=== PATIENT | female | born 1980 | race Caucasian/White ===

== ENCOUNTER 2016-12-17 15:47 | Observation (INO) | payer OTHER ==
[~2016-12-17] VITALS: Ht 172.7 cm; Wt 160.1 kg
[~2016-12-17 15:47] MED LIST: ALBU8HFA4 IH; LEVE500T53 PO; LEVO175T9 PO; LISI-662 PO; LITH600 PO; MONT10TA21 PO; OMEP20 PO; PHENY100 PO; SIMV-260 PO; TRAZ150 PO; VENL-68 PO; ZIPR80CA2 PO
[2016-12-17 17:09] VITALS: BP 96/55
[2016-12-17 17:10] LABS: BASOPHILS % (AUTO) 0.3 % (0.0-2.0); EOSINOPHILS % (AUTO) 0.9 % (1.0-6.0); HEMATOCRIT 37.2 % (36-46); HEMOGLOBIN 12.6 g/dL (12.0-16.0); LYMPHOCYTES # (AUTO) 2.3 K/uL (1.0-4.8); LYMPHOCYTES % (AUTO) 25.2 % (22.0-44.0); MEAN CORPUSCULAR HEMOGLOBIN 31.9 pg (26.0-34.0); MEAN CORPUSCULAR HGB CONC 33.9 G/dL (31.0-37.0); MEAN CORPUSCULAR VOLUME 94 fL (80-100); MONOCYTES # (AUTO) 0.5 K/uL (0.1-1.0); MONOCYTES % (AUTO) 5.4 % (2.0-9.0); NEUTROPHILS # (AUTO) 6.1 K/uL (1.8-7.7); NEUTROPHILS % (AUTO) 68.2 % (40.0-70.0); PLATELET COUNT (AUTO) 156 K/uL (150-450); RED BLOOD CELL COUNT(AUTO) 3.95 MIL/uL (4.00-5.20); RED CELL DISTRIBUTION WIDTH 13.6 % (11.5-14.5)
[2016-12-17 17:20] LABS: ANION GAP 10 mmol/L (8-16); CARBON DIOXIDE 23 mmol/L (22-29); CHLORIDE 104 mmol/L (98-107); CREATININE 0.97 mg/dL (0.60-1.30); GLOMERULAR FILTR. RATE CALC > 60 mL/min (>60); POTASSIUM 3.9 mmol/L (3.5-5.1); SODIUM SERUM 137 mmol/L (136-145); UREA NITROGEN, BLOOD 8 mg/dL (7-18)
[2016-12-17 17:26] LABS: ALANINE AMINOTRANSFERASE 11 U/L (12-78); ALBUMIN 2.3 g/dL (3.4-5.0); ASPARTATE AMINOTRANSFERASE 11 U/L (15-37); BILIRUBIN,TOTAL 0.1 mg/dL (0.1-1.0); TOTAL PROTEIN, SERUM 6.3 g/dL (6.4-8.2); URIC ACID 5.7 mg/dL (2.6-7.2)
[2016-12-17 18:22] LABS: HEMOGLOBIN A1C 5.4 % (4.5-6.2)
== END 2016-12-17 18:15 | disposition home or self-care (01) ==
LOC: 4S 16:00
PROVIDERS: ADMIT Obstetrics & Gynecology; ATTEND Obstetrics & Gynecology
DX: O13.3 Gestational [pregnancy-induced] hypertension without significant proteinuria, third trimester (principal); O26.13 Low weight gain in pregnancy, third trimester; O26.893 Other specified pregnancy related conditions, third trimester; R51 Headache; G89.29 Other chronic pain; O99.343 Other mental disorders complicating pregnancy, third trimester; F41.9 Anxiety disorder, unspecified; O99.333 Smoking (tobacco) complicating pregnancy, third trimester
CPT/HCPCS: 36415; 59025; 80053; 81050; 83036; 84156; 84550; 85025; G0378

== ENCOUNTER 2017-01-28 12:40 | Observation (INO) | payer OTHER | END 2017-01-28 15:25 | disposition home or self-care (01) | LOC: 4S 12:40 | PROVIDERS: ADMIT Obstetrics & Gynecology; ATTEND Obstetrics & Gynecology | DX: O62.9 Abnormality of forces of labor, unspecified (principal); O09.523 Supervision of elderly multigravida, third trimester; O99.213 Obesity complicating pregnancy, third trimester; O99.513 Diseases of the respiratory system complicating pregnancy, third trimester; J44.9 Chronic obstructive pulmonary disease, unspecified; Z3A.37 37 weeks gestation of pregnancy | CPT/HCPCS: 59025; 80307; G0378 ==

== ENCOUNTER 2017-01-30 12:05 | Observation (INO) | payer OTHER ==
[~2017-01-30] VITALS: Ht 172.7 cm; Wt 168.3 kg
[~2017-01-30 12:05] MED LIST changes: -SIMV-260 PO; +SIMV20 PO
[2017-01-30] MEDS ORDERED: PREN1TAB80 PO (13:12)
[2017-01-30] MEDS ORDERED: LORA10TA7 PO (13:12)
[2017-01-30] MEDS ORDERED: FOLI1 PO (13:12)
[2017-01-30] MEDS ORDERED: ACET-2247 PO (13:12)
[2017-01-30] MEDS ORDERED: DEXT15LI4 PO (13:12)
[2017-01-30] MEDS ORDERED: ZIPR60CA2 PO (13:17)
[2017-01-30 13:22] VITALS: BP 135/65
[2017-01-30] MEDS ORDERED: RINGERS SOLUTION,LACTATED 1,000 ML IV SCH (14:30)
[2017-01-30] MEDS ORDERED: RINGERS SOLUTION,LACTATED 1,000 ML IV ONE ×2 (14:30→14:31)
[2017-01-30 20:42] LABS: APPEARANCE,URINE CLEAR (CLEAR); GLUCOSE, URINE (UA) NEGATIVE (NEGATIVE); KETONES,URINE NEGATIVE (NEGATIVE); LEUKOCYTE ESTERASE ,URINE NEGATIVE (NEGATIVE); OCCULT BLOOD,URINE NEGATIVE (NEGATIVE); PROTEIN,URINE TRACE (NEGATIVE)
[2017-01-30 20:59] LABS: ADD UA MICROSCOPIC NO
[2017-01-31] MEDS ORDERED: CALCIUM CARBONATE 500 MG CHEWABLE TABLET CHEW SCH
== END 2017-01-31 09:30 | disposition home or self-care (01) ==
LOC: 4S 12:05
PROVIDERS: ADMIT Obstetrics & Gynecology; ATTEND Obstetrics & Gynecology
DX: O99.213 Obesity complicating pregnancy, third trimester (principal); O99.343 Other mental disorders complicating pregnancy, third trimester; F20.9 Schizophrenia, unspecified; O99.283 Endocrine, nutritional and metabolic diseases complicating pregnancy, third trimester; E03.9 Hypothyroidism, unspecified; E16.2 Hypoglycemia, unspecified; O99.513 Diseases of the respiratory system complicating pregnancy, third trimester; J44.9 Chronic obstructive pulmonary disease, unspecified; O26.893 Other specified pregnancy related conditions, third trimester; G40.89 Other seizures; O09.523 Supervision of elderly multigravida, third trimester; Z3A.37 37 weeks gestation of pregnancy
CPT/HCPCS: 59025 ×2; 76805 ×2; 80307 ×8; 81003; 96360; 96361; G0378 ×2; J7120 ×2

== ENCOUNTER 2017-02-03 11:40 | Inpatient (IN) | payer OTHER ==
[~2017-02-03] VITALS: Ht 172.7 cm; Wt 169.6 kg
[~2017-02-03 11:40] MED LIST changes: +ACET-2247 PO; +DEXT15LI4 PO; +FOLI1 PO; -LEVE500T53 PO; -LEVO175T9 PO; -LISI-662 PO; -LITH600 PO; +LORA10TA7 PO; -PHENY100 PO; +PREN1TAB80 PO; -SIMV20 PO; -TRAZ150 PO; -VENL-68 PO; -ZIPR80CA2 PO
[2017-02-03] MEDS ORDERED: DEXAMETHASONE SOD PHOS 4 MG/ML VIAL IVP ONE (12:00)
[2017-02-03] MEDS ORDERED: EPHEDrine SULFATE 50 MG/ML VIAL IM ONE (12:00)
[2017-02-03] MEDS ORDERED: LIDOCAINE HCL/PF 2% 5 ML VIAL INJ ONE (12:00)
[2017-02-03] MEDS ORDERED: ONDANSETRON HCL 4 MG/2 ML VIAL IVP ONE (12:00)
[2017-02-03] MEDS ORDERED: PHENYLEPHRINE HCL 10 MG/ML VIAL IVP ONE (12:00)
[2017-02-03] MEDS ORDERED: RINGERS SOLUTION,LACTATED 1,000 ML IV ONE (13:47)
[2017-02-03] MEDS ORDERED: CITRIC ACID/SODIUM CITRATE 30 ML SOLUTION UDCUP PO ONE (14:00)
[2017-02-03] MEDS ORDERED: METOCLOPRAMIDE HCL 5 MG/ML 2 ML VIAL IVP ONE (14:00)
[2017-02-03 14:49] LABS: HEMATOCRIT 38.4 % (36-46); HEMOGLOBIN 12.9 g/dL (12.0-16.0); MEAN CORPUSCULAR HEMOGLOBIN 31.8 pg (26.0-34.0); MEAN CORPUSCULAR HGB CONC 33.6 G/dL (31.0-37.0); MEAN CORPUSCULAR VOLUME 95 fL (80-100); RED BLOOD CELL COUNT(AUTO) 4.05 MIL/uL (4.00-5.20); RED CELL DISTRIBUTION WIDTH 13.2 % (11.5-14.5); WHITE BLOOD COUNT (AUTO) 7.8 K/uL (4.5-11.0)
[2017-02-03 14:50] LABS: BASOPHILS % (AUTO) 0.2 % (0.0-2.0); EOSINOPHILS % (AUTO) 0.8 % (1.0-6.0); LYMPHOCYTES % (AUTO) 26.1 % (22.0-44.0); MONOCYTES # (AUTO) 0.4 K/uL (0.1-1.0); MONOCYTES % (AUTO) 5.4 % (2.0-9.0); NEUTROPHILS # (AUTO) 5.3 K/uL (1.8-7.7); NEUTROPHILS % (AUTO) 67.5 % (40.0-70.0)
[2017-02-03 14:59] VITALS: BP 96/51
[2017-02-03] MEDS ORDERED: INFLUENZA VIRUS VACCINE QVS 2016-17 (3YR+)/PF 60 MCG/0.5 ML SYRINGE IM ONE (15:15)
[2017-02-03] MEDS ORDERED: CeFAZolin 2 GM/DEXTROSE 50 ML IV ONE (16:48)
[2017-02-03] MEDS ORDERED: MORPHINE SULFATE/PF 0.5 MG/ML 10 ML AMP ONE (16:49)
[2017-02-03] MEDS ORDERED: FentaNYL CITRATE-PF 100 MCG/2 ML VIAL ONE (16:49)
[2017-02-03] MEDS ORDERED: ONDANSETRON HCL 4 MG/2 ML VIAL IVP PRN ×2 (18:30)
[2017-02-03] MEDS ORDERED: FentaNYL CITRATE-PF 100 MCG/2 ML VIAL IVP PRN ×4 (18:30)
[2017-02-03] MEDS ORDERED: DiphenhydrAMINE HCL 50 MG/ML VIAL IVP PRN ×2 (18:30)
[2017-02-03] MEDS ORDERED: DEXAMETHASONE SOD PHOS 4 MG/ML VIAL IVP PRN (18:30)
[2017-02-03] MEDS ORDERED: NALOXONE HCL 0.4 MG/ML VIAL IVP PRN (18:30)
[2017-02-03] MEDS ORDERED: KETOROLAC TROMETHAMINE 30 MG/ML VIAL IVP ONE (18:30)
[2017-02-03] MEDS ORDERED: KETOROLAC TROMETHAMINE 30 MG/ML VIAL IVP PRN (18:30)
[2017-02-03] MEDS ORDERED: ACETAMINOPHEN 1000 MG/ISO-OSM 100 ML IV ONE ×2 (18:30→19:25)
[2017-02-03] MEDS ORDERED: MEPERIDINE-PF 25 MG/ML SYRINGE IVP PRN (18:30)
[2017-02-03] MEDS ORDERED: NALBUPHINE HCL 10 MG/ML VIAL IVP PRN ×3 (18:30)
[2017-02-03] MEDS ORDERED: ACETAMINOPHEN 1000 MG/ISO-OSM 100 ML IV PRN (18:30)
[2017-02-03] MEDS ORDERED: KETOROLAC TROMETHAMINE 30 MG/ML VIAL ONE (19:50)
[2017-02-03] MEDS ORDERED: OXYGEN THERAPY IH SCH ×4 (20:00)
[2017-02-03] MEDS ORDERED: OXYTOCIN 20 UNITS in RINGERS SOLUTION,LACTATED 1,000 ML IV SCH (21:05)
[2017-02-03] MEDS ORDERED: OxyCODONE HCL/ACETAMINOPHEN 5-325 MG TABLET PO PRN (21:15)
[2017-02-04] MEDS: DEXTROSE 5%-0.45% SODIUM CHL 1,000 ML IV SCH ×2 (05:44→14:08)
[2017-02-04 06:52] LABS: BASOPHILS % (AUTO) 0.1 % (0.0-2.0); EOSINOPHILS % (AUTO) 0 % (1.0-6.0); HEMATOCRIT 33.7 % (36-46); HEMOGLOBIN 11.3 g/dL (12.0-16.0); LYMPHOCYTES # (AUTO) 1.2 K/uL (1.0-4.8); LYMPHOCYTES % (AUTO) 9.7 % (22.0-44.0); MEAN CORPUSCULAR HGB CONC 33.5 G/dL (31.0-37.0); MEAN CORPUSCULAR VOLUME 95 fL (80-100); MONOCYTES # (AUTO) 0.3 K/uL (0.1-1.0); MONOCYTES % (AUTO) 2.3 % (2.0-9.0); NEUTROPHILS # (AUTO) 10.6 K/uL (1.8-7.7); RED BLOOD CELL COUNT(AUTO) 3.53 MIL/uL (4.00-5.20); RED CELL DISTRIBUTION WIDTH 13.4 % (11.5-14.5); WHITE BLOOD COUNT (AUTO) 12.1 K/uL (4.5-11.0)
[2017-02-04 07:00] LABS: NEUTROPHILS % (AUTO) 87.9 % (40.0-70.0)
[2017-02-04] MEDS: MAGNESIUM HYDROXIDE SUSPENSION 30 ML UDCUP PO SCH ×2 (10:07→21:04)
[2017-02-04] MEDS: IBUPROFEN 600 MG TABLET PO PRN (21:02)
[2017-02-04] MEDS: OxyCODONE HCL/ACETAMINOPHEN 5-325 MG TABLET PO PRN (21:03)
[2017-02-05] MEDS: OxyCODONE HCL/ACETAMINOPHEN 5-325 MG TABLET PO PRN ×3 (00:03→09:26)
[2017-02-05] MEDS: IBUPROFEN 600 MG TABLET PO PRN ×2 (03:17→09:25)
[2017-02-05] MEDS ORDERED: IBUP-1547 PO (13:04)
[2017-02-05] MEDS ORDERED: DSS100 PO ×2 (13:05→13:06)
== END 2017-02-05 13:35 | disposition home or self-care (01) | DRG 540 ==
LOC: 4S 11:40 → OBSVTOIN 11:40 → 4S 20:46
PROVIDERS: ADMIT Obstetrics & Gynecology; ATTEND Obstetrics & Gynecology
PROC: 10D00Z1 Extraction of Products of Conception, Low, Open Approach (ICD-10-PCS; principal; 2017-02-03)
PROC: 0UB70ZZ Excision of Bilateral Fallopian Tubes, Open Approach (ICD-10-PCS; 2017-02-03)
PROC: 3E0234Z Introduction of Serum, Toxoid and Vaccine into Muscle, Percutaneous Approach (ICD-10-PCS; 2017-02-04)
DX: O41.03X0 Oligohydramnios, third trimester, not applicable or unspecified (principal); Z68.43 Body mass index [BMI] 50.0-59.9, adult; O99.214 Obesity complicating childbirth; O09.523 Supervision of elderly multigravida, third trimester; O75.89 Other specified complications of labor and delivery; E66.9 Obesity, unspecified; F17.210 Nicotine dependence, cigarettes, uncomplicated; Z88.8 Allergy status to other drugs, medicaments and biological substances; Z30.2 Encounter for sterilization; Z3A.38 38 weeks gestation of pregnancy; Z37.0 Single live birth; Z23 Encounter for immunization
CPT/HCPCS: 76816; 86850; 86900; 86901; 87081; 88302; 90471; J0131; J0690; J1100; J1885; J2274; J2370; J2405; J2590; J2765; J3010; J3490; J7120